=== PATIENT | female | born 1980 | race Caucasian/White ===

== ENCOUNTER 2024-02-14 02:29 | Emergency (ER) | payer BC, SELFPAY ==
[2024-02-14 02:44] VITALS: BP 112/46
--- NOTE | 2024-02-14 03:19 | ED.GENMED ---
History of Present Illness
General
Chief Complaint: Flank Pain
Source: patient
Exam Limitations: none
Time Seen by Provider: 02/14/24 03:13
Nursing documentation reviewed up to this point in time: agreed with
History of Present Illness
History of Present Illness:
This a pleasant 43-year-old female that presents to the emergency department with left flank pain. She states that she has been having UTI symptoms and was seen by her family doctor several times for UTI. She just finished a course of antibiotics.
Tonight she presented to the emergency department with diaphoresis and left flank pain. She denies any fevers. She does not get her menses due to an ablation.
Review of Systems
Review of Systems
Allergies reviewed?: Yes
All Other Systems: ROS reviewed and negative except as documented in HPI and ROS
Constitutional: Reports no symptoms
EENT: Reports no symptoms
Respiratory: Reports no symptoms
Cardiac: Reports no symptoms
ABD/GI: Reports no symptoms
: Reports bleeding
Musculoskeletal: Reports no symptoms
Skin: Reports no symptoms
Neurological: Reports no symptoms
Endocrine: Reports no symptoms
Hematologic/Lymphatic: Reports no symptoms
Psychiatric: Reports anxiety
Phy Exam
General Physical Exam
General Presentation: well appearing and no apparent distress
General Skin: warm and dry
General Habitus: normal
General Mental: alert
General Hydration: appears well hydrated
ENT Exam
ENT Exam: EOMI, pharynx normal, neck supple and normocephalic
Eye Exam
Eye Exam: PERRL, cornea clear and conjunctiva normal
Cardiovascular Exam
Cardiovascular Exam: regular rate/rhythm, no edema, no murmur and normal peripheral pulses
Pulmonary Exam
Pulmonary Exam: lungs clear, no respiratory distress, no rales, no crackles, no rhonchi, no stridor, no wheezing and no cough
Gastrointestinal Exam
Gastrointestinal Exam: normal bowel sounds, non tender, soft, no organomegaly, no pulsatile mass, non distended and cva tenderness
Neurological Exam
Neurological Exam: alert, oriented x3, no motor deficits and speech normal
Musculoskeletal Exam
Musculoskeletal Exam: full ROM and back tenderness
Skin Exam
Skin Exam: normal color, warm/dry, no rash and no petechia
Psychiatric Exam
Psychiatric Exam: normal mood/affect
Course
Orders/Labs/Results
Orders:
Orders
02/14/24 03:09
CT Abd/pelvis W Iv Cont Urgent
Comment:
Reason For Exam: left flank pain
Test Result ONCE
02/14/24 03:17
0.9% Sodium Chloride 1000 ml [Nss] 1,000 ml IV BOLUS
Ketorolac [Toradol] 15 mg IV NOW STA
02/14/24 03:49
Complete Blood Count/With Diff Urgent
Comprehensive Metabolic Panel Urgent
HCG, Serum Qualitative Screen Urgent
Lipase Urgent
Urinalysis Reflex To Culture Urgent
Date Specimen was Collected: 02/14/24
Time Specimen was Collected: 03:46
Urine Microscopic Reflex Cult Urgent
Urine Culture Urgent
JAYLEN Source: U
Specimen Description:
Date Specimen was Collected: 02/14/24
Time Specimen was Collected: 03:46
Abnormal Lab Results
02/14/24
03:49
MCH 31.5 H pg
(27.0-31.0)
MPV 10.7 H fL
(7.4-10.4)
Lymphocytes % 20.0 L %
(20.5-51.1)
Ur Occult Blood Reflex 3+ A
(Negative)
Urine Nitrite (Reflex) Positive A
(Negative)
Urine Bilirubin 3+ A
(Negative)
Urine Urobilinogen 4+ A
(Neg - 1+)
Leukocyte Esterase Rfl 2+ A
(Negative)
Urine RBC 26-30 A /HPF
(0-2)
Urine WBC (Reflex) 50-60 A /HPF
(0-5)
Urine Bacteria (Reflex) Many A
(Negative)
Urine Yeast Few A
(Negative)
Urine Albumin (Reflex) 1+ A
(Neg - Trace)
02/14/24 03:49
02/14/24 03:49
Vital Signs
Initial and Last Documented VS:
Initial Vital Signs
Temp Pulse Resp BP Pulse Ox
97.7 F 86 18 112/46 97
02/14/24 02:44 02/14/24 02:44 02/14/24 02:44 02/14/24 02:44 02/14/24 02:44
Last Documented Vital Signs
Temp Pulse Resp BP Pulse Ox
97.7 F 86 18 112/46 99
02/14/24 02:44 02/14/24 02:44 02/14/24 02:44 02/14/24 02:44 02/14/24 04:06
*Critical Care Note
Total Time (30-74mins, 75-104mins- exclusive of procedures): Not Applicable
Update Note
Update Note:
IMPRESSION:
The urinary bladder wall is thickened but the bladder is non-distended. This may indicate cystitis. Correlate with urinalysis.
Thickening of the right ureter that may be due to ascending infection. No overt pyelonephritis.
No obstructing stone or hydronephrosis.
No evidence of diverticulitis or colitis. Normal appendix. No bowel obstruction. No free air.
No concerning bone finding.
ED Attending Note
-
Portions of this chart may have been created with voice recognition software.� Occasional wrong word or��sound alike� substitutions may have occurred due to the inherent limitations of voice recognition software.
Discharge Plan
Departure
Patient Disposition: Home (Routine Discharge)
Date of Disposition: 02/14/24
Time of Disposition: 05:17
Patient with high blood pressure during this ER visit?: Yes
Condition: Good
Discharge Problem:
UTI (urinary tract infection)
Instructions: Urinary Tract Infection, Adult (DC)
Prescriptions:
New
cefpodoxime 200 mg tablet
200 mg PO BID Qty: 20 0RF
phenazopyridine [Pyridium] 100 mg tablet
100 mg PO TID PRN (Reason: pain) Qty: 6 0RF
Referrals:
Amanda Reyes MD [Family Provider] -
Activity Restrictions/Additional Instructions:
Your prescriptions were sent electronically to the pharmacy that you specified.
It was a pleasure meeting you and taking part in your care. We hope for your continued healing and wellness.
Please read discharge instructions in their entirety. However, they are for general education and may not describe your exact diagnosis at discharge. Information on your ER visit and medical conditions were discussed with you along with appropriate
follow up information...
If indicated, please take your medications as instructed and indicated on discharge paperwork.
Please schedule a follow up appointment as directed. Call to schedule an appointment
Please return to the emergency department with ANY change in, persisting, or worsening of symptoms. If any of your symptoms do not improve, or persist, or become more severe within 6-12 hours, please return to the emergency department for further
care.
Please return to the emergency department if you develop a headache, neck pain/stiffness, fever greater than 100.4F, chest pain, shortness of breath, persistent nausea, vomiting, slurred speech, difficulty walking, numbness/tingling, weakness, signs
of infection or any other symptoms that are worrisome to you.
If you have any questions or concerns please do not hesitate to call the Hospital at or E-mail me directly at [email or web address]
Interventions
Interventions:
*Risk Screen - Suicide Last Done: 02/14/24 02:44
*General Assessment Last Done: 02/14/24 04:06
*Neglect/Abuse Screening Last Done: 02/14/24 02:44
ED- Fall Risk Assessment Last Done: 02/14/24 04:06
*ED COVID-19 Vaccine History Last Done: 02/14/24 04:06
JL-Bojxho-Yncfzcukxg Assessment Last Done: 02/14/24 04:06
ED-Female Genitourinary Assessment Last Done: 02/14/24 04:06
Discharge Date and Time
Print Language: TUVALUAN
[2024-02-14] MEDS: TORADOL 15 MG IV (03:52)
[2024-02-14] MEDS: NSS 1000 IV (03:53)
[2024-02-14 03:56] LABS: % Basophils 0.4 % (0-2); % Eosinophils 0.9 % (0-6); % Immature Granulocytes 0.5 % (0-0.5); % Monocytes 6.9 % (1.7-9.3); % Neutrophils 71.3 % (42.2-75.2); Absolute Eosinophils 0.1 10^3/uL (0-0.7); Absolute Lymphocytes 1.5 10^3/uL (1.2-3.4); Absolute Monocytes 0.5 10^3/uL (0.1-0.6); Absolute Neutrophils 5.4 10^3/uL (1.4-6.5); Hematocrit 39.8 % (37.0-47.0); Hemoglobin 13.4 g/dL (12.0-16.0); Mean Corp Hgb Conc. 33.7 g/dL (33.0-37.0); Mean Corpuscular Hgb 31.5 pg (27.0-31.0); Mean Corpuscular Volume 93.6 fL (81.0-99.0); Mean Platelet Volume 10.7 fL (7.4-10.4); Nucleated Red Blood Cells % 0 %; Platelet Count 142 10^3/uL (130-400); Red Blood Cell Count 4.25 10^6/uL (4.20-5.40); Red Cell Dist. Width 11.9 % (11.5-14.5); White Blood Cell Count 7.6 10^3/uL (4.8-10.8)
[2024-02-14 03:57] LABS: Urine Albumin 1+ (Neg - Trace); Urine Bilirubin 3+ (Negative); Urine Character Slightly Cloudy (Clear); Urine Color Amber; Urine Glucose Negative (Negative); Urine Ketone Negative (Negative); Urine Leukocyte 2+ (Negative); Urine Nitrite Positive (Negative); Urine Occult Blood 3+ (Negative); Urine Specific Gravity 1.015 (<1.030); Urine Urobilinogen 4+ (Neg - 1+); Urine pH 6.5 (5.0-9.0)
[2024-02-14 04:06] VITALS: BMI 26.7
[2024-02-14 04:11] LABS: HCG, Serum Qualitative Screen Negative
[2024-02-14 04:21] LABS: ALT (SGPT) 20 U/L (0-35); AST (SGOT) 26 U/L (14-36); Albumin 4.1 g/dl (3.5-5.0); Alkaline Phosphatase 70 U/L (38-126); Blood Urea Nitrogen 14 mg/dl (7-17); Calcium 8.7 mg/dl (8.4-10.2); Carbon Dioxide 29 mmol/L (22-30); Chloride 102 mmol/L (98-107); Estimated Creatinine Clearance 82 ml/min; Glucose 98 mg/dl (70-99); Lipase 69 U/L (23-300); Potassium 4.1 mmol/L (3.5-5.1); Sodium 138 mmol/L (135-145); Total Bilirubin 0.5 mg/dl (0.2-1.3); Total Protein 6.5 g/dl (6.3-8.2); eGFR > 60.00
[2024-02-14 04:47] LABS: Urine Squamous Cell 16-20 /LPF (Few)
[2024-02-14 04:48] LABS: Urine Bacteria Many (Negative); Urine Red Blood Cell 26-30 /HPF (0-2); Urine White Cell 50-60 /HPF (0-5); Urine Yeast Few (Negative)
[2024-02-14] MEDS: ROCEPHIN 1000 MG IV (05:32)
[2024-02-14 05:40] VITALS: BP 118/55
== END 2024-02-14 05:42 | disposition home or self-care (01) ==
LOC: EMR 02:29
PROVIDERS: EMERGENCY PHYSICIAN Student in an Organized Health Care Education/Training Program; FAMILY PHYSICIAN Student in an Organized Health Care Education/Training Program
DX: N39.0 Urinary tract infection, site not specified (principal)
CPT/HCPCS: 96374; 96375; 96361; 99284; 74177; 80053; 81003; 81015; 83690; 84703; 85025; 87077; 87086; 87186; Q9967